=== PATIENT | male | born 1995 | race African-American/Black ===

== ENCOUNTER 2017-10-31 11:23 | Emergency (ER) | payer OTHER ==
[2017-10-31] MEDS ORDERED: LORAZEPAM INJ 2 MG/1 ML VIAL IV ONE (12:15)
[2017-10-31] MEDS ORDERED: HYDROMORPHONE HCL INJ/PF 2 MG/ML AMPULE IV ONE (12:16)
[2017-10-31] MEDS ORDERED: ONDANSETRON HCL INJ/PF 4 MG/2 ML SDV IV ONE (12:16)
[2017-10-31] MEDS ORDERED: SODIUM BICARBONATE 8.4% INJ 50 MEQ/50 ML DISP.SYRIN IV ONE (12:18)
[2017-10-31] MEDS ORDERED: LIDOCAINE 1%/EPINEPHRINE INJ 20 ML VIAL INJ ONE (12:18)
--- NOTE | 2017-10-31 12:23 | ER Document Report ---
ED General - General Chief Complaint: Dog Bite Stated Complaint: DOG BITE Time Seen by Provider: 10/31/17 12:15 TRAVEL OUTSIDE OF THE [place] IN LAST 30 DAYS: No - HPI Patient complains to provider of: Dog bite Notes: Patient coming in after being bit by a dog. Patient states it a pit bull dog of a friend. Patient has obvious deformity to his lip and an avulsion of the center part of his upper lip. Patient also has other small abrasions. Patient states immunizations are up-to-date patient is an active duty [employer]. - Related Data Allergies/Adverse Reactions: No Known Allergies Allergy (Verified 10/31/17 11:24) Past Medical History - Social History Smoking Status: Unknown if Ever Smoked Family History: Reviewed & Not Pertinent Review of Systems - Review of Systems Constitutional: Other - Dog bite EENT: No symptoms reported Cardiovascular: No symptoms reported Respiratory: No symptoms reported Gastrointestinal: No symptoms reported Genitourinary: No symptoms reported Male Genitourinary: No symptoms reported Musculoskeletal: No symptoms reported Skin: No symptoms reported Hematologic/Lymphatic: No symptoms reported Neurological/Psychological: No symptoms reported Physical Exam - Vital signs Vitals: Temp Pulse Resp BP Pulse Ox 99.1 F 82 20 146/94 H 96 10/31/17 11:31 10/31/17 11:31 10/31/17 11:31 10/31/17 11:31 10/31/17 11:31 Interpretation: Normal - General General appearance: Appears well, Alert - HEENT Head: Normocephalic. No: Atraumatic - Patient has an avulsion of the upper part of his lip hanging down. Patient also has a small laceration at the corner of the lower lip on the left-hand side. Patient also has multiple small abrasions to the right's of zygomatic arch Eyes: Normal Pupils: PERRL - Respiratory Respiratory status: No respiratory distress Chest status: Nontender Breath sounds: Normal Chest palpation: Normal - Cardiovascular Rhythm: Regular Heart sounds: Normal auscultation Murmur: No - Abdominal Inspection: Normal Distension: No distension Bowel sounds: Normal Tenderness: Nontender Organomegaly: No organomegaly - Back Back: Normal, Nontender - Extremities General upper extremity: Normal inspection, Nontender, Normal color, Normal ROM , Normal temperature General lower extremity: Normal inspection, Nontender, Normal color, Normal ROM , Normal temperature, Normal weight bearing. No: Migel's sign - Neurological Neuro grossly intact: Yes Cognition: Normal Orientation: AAOx4 [place] Coma Scale Eye Opening: Spontaneous Mi[place]ava Coma Scale Verbal: Oriented [place] Coma Scale Motor: Obeys Commands Miroslava Coma Scale Total: 15 Speech: Normal Motor strength normal: LUE, RUE, LLE, RLE Sensory: Normal - Psychological Associated symptoms: Normal affect, Normal mood - Skin Skin Temperature: Warm Skin Moisture: Dry Skin Color: Normal Course - Re-evaluation Re-evalutation: 10/31/17 12:23 Complicated laceration repair I did contact Dr. Akhtar patient is not to agree to come and evaluate the patient. I did of the patient we are obtaining his bipolar and obtaining a lidocaine with epi with bicarbonate and Dr. Akhtar's suture set up. 10/31/17 15:28 Initially did contact [facility] unfortunately did not have any plastics. I did consult with Dr. Kavitha Zabala currently attending to the patient. - Vital Signs Vital signs: Temp Pulse Resp BP Pulse Ox 98.0 F 75 20 143/76 H 96 10/31/17 16:02 10/31/17 16:02 10/31/17 11:31 10/31/17 16:02 10/31/17 16:02 Discharge - Discharge Clinical Impression: Laceration of face, multiple sites, complicated Dog bite Qualifiers: Encounter type: initial encounter Qualified Code(s): W54.0XXA - Bitten by dog, initial encounter Condition: Good Disposition: HOME, SELF-CARE Instructions: Laceration Care ([facility]), Oral Narcotic Medication ([facility]) Additional Instructions: Take medications as prescribed. Please follow-up as Dr. Akhtar has recommended. Prescriptions: Amox Tr/Potassium Clavulanate [Augmentin 875-125 Tablet] 1 tab PO BID 10 Days tablet Hydrocodone/Acetaminophen [Hydrocodon-Acetaminophen 5-325] 1 each PO Q6 PRN #21 tablet PRN Reason: Forms: Return to Work Referrals: SB AKHTAR MD [ACTIVE STAFF] - Follow up as needed (Call office Thursday to set up appointment)
[2017-10-31] MEDS ORDERED: AMPICILLIN SOD/SULBACTAM 3 GM VIAL IV ONE (13:28)
[2017-10-31] MEDS ORDERED: AMOXICILLIN TR/POT CLAVULANATE 500-125 MG TAB PO ONE (15:29)
[2017-10-31 17:06] VITALS: BP 143/76
--- NOTE | 2017-10-31 17:09 | CONSULTATION REPORT E ---
Consultation Report NAME: CRISTAL CANCHOLA : 1995 AGE: 22Y DATE: 10/31/2017 TO: SB AKHTAR JR., M.D. FROM: Akira ESTRADA, Requesting Physician CHIEF COMPLAINT: The patient has a chief complaint of dog bite to the face. 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 He was in good stable condition. Evaluated by the emergency room physician and it was felt that this was very complicated and he would need reconstruction. I was called to treat him. MEDICATIONS: None. ALLERGIES: None. REVIEW OF SYSTEMS: Essentially unremarkable. PHYSICAL EXAMINATION: This patient has a very complex injury to his upper lip. This was an avulsion that included his cupid bow, his philtral columns, and his white roll vermilion border and down to the wet/dry interface of the vermilion borders of the lip. It was a complete avulsion of the area and there was only a small bridge of tissue that was remaining in order to keep the tissue viable. The patient had another very complex injury of the left lateral commissure. He had an avulsion of orbicularis amber muscles which was hanging out and desiccated and traumatized and ecchymotic and contused with a laceration that extended across the full vermilion border from inside of the mouth to the outside of the mouth and onto the skin. He also had another bite on his right lower eyelid and a stellate bite on his upper portion of his cheek and another stellate one on the lower portion of his cheek. ASSESSMENT: Complex injuries to the lips and cheek. PLAN: Reconstruction, and this will be under separate dictation. Instructions were given to the patient to keep his head elevate, limit his activities, no bending, straining. Clear liquids for the next 2 days, full liquids for the next following 2 days, and a soft diet for the next several days. He is to contact my office first thing Thursday morning for a follow up. We talked about the possibility of seeing about getting him set up for hyperbaric oxygen and he was told he is not to smoke, not to smoke at all, because this will certainly jeopardize the whole reconstruction of his central portion of his upper lip. He is to keep his head elevated. No bending, straining, and very limited activity. He understands my directives and I will see him back in the office on Thursday. Again, we did detail him about hyperbaric oxygen treatments and this might be a possibility and we will talk to him and see how things are going on Thursday. DICTATING PHYSICIAN: SB AKHTAR JR., M.D. [id number] PHY#: [id number] ID: [id number] JOB#: [id number] ACCT: [id number] cc:SB AKHTAR JR., M.D. >
--- NOTE | 2017-10-31 18:44 | OPERATIVE REPORT E ---
Operative Report NAME: CRISTAL CANCHOLA : 1995 AGE: 22Y DATE OF SURGERY: 10/31/2017 ROOM: PREOPERATIVE DIAGNOSES: Complex avulsive injury of the upper lip, left lateral commissure with disruption of the orbicularis amber muscle and avulsion of that muscle from its origin, and laceration of the right lower eyelid and lacerations and avulsions of the right cheek x2. POSTOPERATIVE DIAGNOSES: Complex avulsive injury of the upper lip, left lateral commissure with disruption of the orbicularis amber muscle and avulsion of that muscle from its origin, and laceration of the right lower eyelid and lacerations and avulsions of the right cheek x2. SURGEON: SB AKHTAR JR., M.D. ANESTHESIA: 1% lidocaine with epinephrine and bicarb for its anesthetic and hemostatic effects and sedation by the ER physician. PROCEDURE AND FINDINGS IN DETAIL: The patient was laid on the table in a supine position. After the patient was prepped with a Betadine solution, he was draped in a sterile aseptic manner. The patient had markings made along the white roll vermilion border, so we could try to help align the defect. This was a very complex problem because this was avulsed and there was only a small bridge of tissue that was supplying the blood supply to the avulsed flap, so what we did was after we marked the white roll vermilion border on both the avulsed tissue as well as the [place] lip, we then went ahead and anesthetized the area with 1% lidocaine with epinephrine and bicarb for its anesthetic and hemostatic effects. Using loupe magnification and high-power lighting, we then went ahead and considered our options for reconstruction. It was felt that because this was such a large defect and it was such a big volume of tissue that was involved and being that the patient was young, it was felt that it would be best to try to re-advance this flap into the area of defect, so we went ahead and created an advancement flap with the blood supply coming from the inferior aspect of the upper lip and posterior aspect of the upper lip. We created the flap and cut the nonviable edges and margins in order to try to give a good smooth repair. It was also noted another avulsion of the flap in the central portion of it, which had desiccated, which we had to debride and this again led to some foreshortening of the flap, making it more difficult for us to do the reconstruction, because this would change the actual white roll and vermilion border and cupid's bow of the patient. However, this was our only option, so we had to go with the advancement flap that we had created, so after using pickup scissors and developing the flap, maintaining as much of a blood supply as we could, hopefully being supplied by a portion of the labial artery. We then went ahead and began the reconstruction. We used 5-0 Vicryl in order to reconstruct the central portion of the flap, which had been avulsed. It was almost an avulsion with a second avulsion. We reconstructed this into place, so that we would maintain volume on this whole central portion of his lip without having a hollow concavity deformity, and 5-0 Vicryl was used to anchor the internal flap into place. After we did this, we then went ahead and worked on alignment of the white roll vermilion border on both lateral sides of the avulsion. We then went ahead step by step and sutured the flap back into place with the best alignment as we could using our preoperative markings with the sterile marking pen. Step by step, we re-advanced the flap now into its new area of defect and we were able to realign the white roll vermilion border. The wet-dry interface of the lip on both the right and the left side. After we placed all of these stitches into place for the reconstruction of the flap, we then went ahead and again, with loupe magnification throughout the case, we realigned the white roll vermilion border. We tried to align the philtral columns and we tried to realign the wet-dry interface of the lip. We used 6-0 Prolene throughout this area for the reconstruction in order to try to optimize his outcome and minimize his scarring. After we completed this, we then moved to the left lateral commissure. This was a very complex avulsion. His orbicularis amber muscle was avulsed off of its insertion. The muscle was contused and ecchymotic and a portion of it was nonviable. We then went ahead and cleaned this whole margin of the orbicularis amber. We got hemostasis throughout the case with a bipolar. We then went ahead and we anesthetized him with the 1% lidocaine with epinephrine and bicarb for its anesthetic and hemostatic effects after we had marked with the marking pen, the white roll vermilion border and the wet-dry interface. Once we thoroughly cleaned the area, we then went ahead and debrided the muscle. Now, we had a shorter muscle and this was going to be a problem, so we went ahead and dissected the muscle and created a muscle advancement flap using some of the muscle from the lateral commissure area and some of the orbicularis muscle from the lip itself, so that we would have continuity and not have too much of an effect on his smile and function. After we got enough advancement of the muscle, we then placed 5-0 Vicryl sutures reapproximating the muscle into this insertion into the oral commissure. After we did this, this now gave us good continuity. Now, the next hard part was trying to realign the oral commissure. He had color differences making it somewhat of a challenge for the reconstruction. The skin had different colors and we tried to use this to help realign the area. We realigned the remaining portions of the white roll and then realigned the wet-dry interface and then we went ahead and realigned the skin. A 5-0 Vicryl was used for the subcutaneous deep dermis and the skin was closed with 6-0 Prolene sutures, the mucosal surfaces with 5-0 Chromic sutures. After we completed this, we then turned our attention to the right cheek. The right lower eyelid had an avulsed injury as well as a curvilinear avulsion on the upper part of the cheek and on the lower inferior portion of the cheek, there was a stellate burst type of avulsive injury. All these were anesthetized and cleaned and then we sutured them into place. The eyelid was repaired with 6-0 Prolene. The upper portion of the cheek, which had a curvilinear type of avulsed injury; this was debrided and the edges were realigned in order to get this advancement closed with minimal amount of deformity. The worst one was the inferior one. This was a stellate kind of burst kind of avulsion. There were multiple little/tiny flaps that were all involved with the injury. After cleaning these, we then went ahead and aligned each of the flaps with 6-0 Prolene sutures, so that each one of them would fit into place, so it would not leave a contour deformity and give him the best possible reconstruction. After we completed this, we applied tincture of Benzoin, Steri-Strips, and bacitracin to the areas, and a light pressure dressing. The patient was then given full instructions. He tolerated all of this well. There were no complications. DICTATING PHYSICIAN: SB AKHTAR JR., M.D. [id number] PHY#: [id number] ID: [id number] JOB#: [id number] ACCT: [id number] cc:SB AKHTAR JR., M.D. >
== END 2017-10-31 17:06 | disposition home or self-care (01) ==
LOC: ER 11:23
PROC: 08QQXZZ Repair Right Lower Eyelid, External Approach (ICD-10-PCS; principal; 2017-10-31)
PROC: 0CQ0XZZ Repair Upper Lip, External Approach (ICD-10-PCS; 2017-10-31)
DX: S01.111A Laceration without foreign body of right eyelid and periocular area, initial encounter (principal); S09.12XA Laceration of muscle and tendon of head, initial encounter; S01.551A Open bite of lip, initial encounter; S01.411A Laceration without foreign body of right cheek and temporomandibular area, initial encounter; W54.0XXA Bitten by dog, initial encounter
CPT/HCPCS: 99284; 96375; 96365; 13131; J0295; J3490 ×2; J1170; J2060; J2405